=== PATIENT | female | born 1965 | race Caucasian/White ===

== ENCOUNTER 2017-05-02 10:47 | Day surgery (SDC) | payer OTHER, MEDICAID ==
--- NOTE | 2017-04-29 18:24 | GHP ---
[f rep st] PREOP HISTORY AND PHYSICAL DATE OF ADMISSION: 05/02/2017 The patient is a 51-year-old female with chronic renal failure, on dialysis, who comes to us with a thrombosed left upper extremity arteriovenous fistula. Ultrasound evaluation in the office confirms the thrombosed fistula and reveals a patent basilic vein appropriate for new fistula creation. She is here to plan for an attempted thrombectomy of her left upper extremity AV fistula. If this is u nsuccessful, which is the likely case, then we would create a new fistula likely using the basilic v ein, requiring a transposition. Risks and options of this were discussed including, but not limited to, bleeding, infection, nerve injury, steal syndrome, clotting, need for alternate access, damage to surrounding structures, and other problems, and she requests to proceed. PAST MEDICAL HISTORY: Chronic renal failure, anemia, and tuberous sclerosis. PAST SURGICAL HISTORY: Arteriovenous fistula creation. MEDICATIONS: Midodrine, Effexor, gabapentin, Sensipar, Nephro-Masha, Renvela, omeprazole, stool soft eners, trazodone, tramadol, iron, mupirocin ointment, and melatonin. ALLERGIES: Sulfa. FAMILY MEDICAL HISTORY: Mother with tubular sclerosis. SOCIAL HISTORY: The patient is a current every-day smoker with 35 pack years. REVIEW OF SYSTEMS: Heartburn and constipation. PHYSICAL EXAMINATION: GENERAL: A somewhat chronically ill-appearing 51-year-old female, alert and oriented x3 and in no acute distress. HEENT: Normocephalic, atraumatic. CHEST: Clear to ausculta tion bilaterally. CARDIAC: Regular rate and rhythm. ABDOMEN: Soft and nontender. EXTREMITIES: Left upper extremity with a palpable radial pulse, warm hand, and no thrill in the upper arm. IMPRESSION: This is a 51-year-old female with clotted arteriovenous fistula dialysis access of her left arm. PLAN: The plan is to attempt thrombectomy of her current left upper extremity fistula. The likelih ood that this will work is dismal. In that case, we would create a new fistula likely using her bas ilic vein, which would require transposition. Again, risks and options have been discussed, and she requests to proceed. /[id number]/MODL
[2017-05-02] MEDS ORDERED: THROMBIN (BOVINE) 5,000 UNIT VIAL TP ONE (10:53)
[2017-05-02] MEDS ORDERED: THROMBIN (BOVINE) 20,000 UNIT SPRAY TP ONE (10:53)
[2017-05-02] MEDS ORDERED: BUPIVACAINE 0.5% 30 ML SDV ONE (10:53)
[2017-05-02] MEDS ORDERED: PROTAMINE SULFATE 50 MG/5 ML VIAL IVP ONE (10:53)
[2017-05-02] MEDS ORDERED: PAPAVERINE HCL 60 MG/2 ML SDV ONE (10:54)
[2017-05-02] MEDS ORDERED: ceFAZolin 2 GM/DEXTROSE 100 ML IV ONE (11:20)
[2017-05-02] MEDS ORDERED: LIDOCAINE 1% 2 ML INJ ID PRN (11:22)
[2017-05-02] MEDS ORDERED: NS 1,000 ML IV ONE (11:22)
[2017-05-02 11:39] LABS: % IMMATURE GRANULYOCYTES 0.4 % (0.0-1.1); ABSOLUTE IMMATURE GRANULOCYTES 0.04 10^3/uL (0.00-0.10); ADD DIFF? NO; ADD MORPH? NO; ADD SCAN? NO; ATYPICAL LYMPHOCYTE FLAG 0 (0-99); FRAGMENT RBC FLAG 0 (0-99); HEMATOCRIT 31.6 % (38.0-47.0); HEMOGLOBIN 10.4 g/dL (12.6-16.3); LEFT SHIFT FLG 10 (0-99); LIPEMIA HEMOLYSIS FLAG 80 (0-99); MEAN CELL HEMOGLOBIN CONCENTR. 32.9 g/dL (32.4-36.7); MEAN CELL VOLUME 106.4 fL (81.5-99.8); MEAN PLATELET VOLUME 9.1 fL (8.7-11.7); PLATELET CLUMPS FLAG 20 (0-99); PLATELET COUNT 226 10^3/uL (150-400); RED BLOOD CELL COUNT 2.97 10^6/uL (4.18-5.33); RED CELL DISTRIBUTION WIDTH 14.3 % (11.5-15.2)
[2017-05-02 12:07] LABS: ANION GAP 14 mEq/L (8-16); CALCIUM 9.9 mg/dL (8.5-10.4); CARBON DIOXIDE 27 mEq/l (22-31); CHLORIDE 93 mEq/L (97-110); CREATININE 5.6 mg/dL (0.6-1.0); GLOMERULAR FILTRATION RATE 8; GLUCOSE 84 mg/dL (70-100); POTASSIUM 5.3 mEq/L (3.5-5.2); SODIUM 134 mEq/L (134-144)
--- NOTE | 2017-05-02 13:35 | PDHPUP ---
History & Physical Update H&P update statement: This history and physical update is based on an assessment of the patient which was completed after admission or registration (within 24 hours), but prior to the surgery/procedure. H&P update: H&P reviewed & patient examined, no change in patient's condition since H&P completed
--- NOTE | 2017-05-02 13:42 | PDANEPAE ---
ANE History of Present Illness AV fistula revision ANE Past Medical History - Cardiovascular History Hx Hypertension: No Hx Arrhythmias: No Hx Chest Pain: No Hx Coronary Artery / Peripheral Vascular Disease: No Hx CHF / Valvular Disease: No Hx Palpitations: No Cardiovascular History Comment: BP TENDS TO RUN LOW TAKING MIDODRINE - Pulmonary History Hx COPD: No Hx Asthma/Reactive Airway Disease: No Hx Recent Upper Respiratory Infection: Yes Hx Oxygen in Use at Home: Yes O2 in Use at Home (L/minute): NOC O2 2L Hx Sleep Apnea: Yes Sleep Apnea Screening Result - Last Documented: Positive Pulmonary History Comment: MILD SLEEP APNEA. HEREDITARY TATE IN LUNGS. SPONTANEOUS PNEUMOTHORAX IN PAST - MULTI BUT MANY YRS SINCE LAST ONE - Neurologic History Hx Cerebrovascular Accident: No Hx Seizures: No Hx Dementia: No Neurologic History Comment: CHILDHOOD SEIZURES - Endocrine History Hx Diabetes: No - Renal History Hx Renal Disorders: Yes Renal History Comment: CHRONIC RENAL FAILURE. DIALYSIS -. 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 TUBEROUS SCLEROSIS - Chronic Pain History Chronic Pain: Yes (GENERALIZED ACHING) - Surgical History Prior Surgeries: AV FISTULA. CHOLECYSTECTOMY. SKIN GROWTHS REMOVED. L INDEX FINGER. R BREAST ABSCESS ANE Review of Systems - Exercise capacity METS (RN): 4 METS - Systems Constitutional: Reports: no symptoms EENMT: Reports: no symptoms Cardiac: Reports: no symptoms Respiratory: Reports: no symptoms Gastrointestinal: Reports: no symptoms Skin: Reports: dryness Neurological: Reports: depressed ANE Patient History - Allergies Allergies/Adverse Reactions: Sulfa (Sulfonamide Antibiotics) Allergy (Verified 05/01/17 11:32) - Home Medications Home Medications: Effexor 05/01/17 [Last Taken 05/01/17 19:00] Gabapentin 05/01/17 [Last Taken 05/01/17 19:00] Herbals/Supplements -Info Only 05/01/17 [Last Taken 05/01/17 19:00] Iron 05/01/17 [Last Taken 05/01/17 19:00] Melatonin 05/01/17 [Last Taken Unknown] Midodrine HCl 05/01/17 [Last Taken 05/01/17 17:00] Mupirocin 05/01/17 [Last Taken Unknown] Omeprazole 05/01/17 [Last Taken 05/01/17 19:00] Renvela 05/01/17 [Last Taken 05/01/17 19:00] Sensipar 05/01/17 [Last Taken 05/01/17 19:00] Tramadol HCl 05/01/17 [Last Taken 05/01/17 19:00] Trazodone HCl 05/01/17 [Last Taken Unknown] - NPO status NPO Since - Liquids (Date): 05/01/17 NPO Since - Liquids (Time): 08:00 NPO Since - Solids (Date): 05/01/17 NPO Since - Solids (Time): 19:30 - Anes Hx Anes Hx: no prior problems - Smoking Hx Smoking Status: Current every day smoker Marijuana use: No - Alcohol Use Alcohol Use: None - Family Anes Hx Family Anes Hx: neg - N/A Family Hx Anesthesia Complications: NEG ANE Labs/Vital Signs - Labs Result Diagrams: 05/02/17 11:25 05/02/17 11:25 - Vital Signs Blood Pressure: 115/75 Heart Rate: 83 Respiratory Rate: 16 Height: 167.64 cm Weight: 81.7 kg ANE Physical Exam - Airway Neck exam: FROM Mallampati Score: Class 1 Mouth exam: dentures - Pulmonary Pulmonary: no respiratory distress - Cardiovascular Cardiovascular: regular rate and rhythym, no murmur, rub, or gallop - ASA Status ASA Status: III ANE Anesthesia Plan Anesthesia Plan: general endotracheal anesthesia
[2017-05-02] MEDS ORDERED: MIDAZOLAM 2 MG/2 ML VIAL IVP ONE (13:45)
[2017-05-02] MEDS ORDERED: PROPOFOL/EMULSION 500 MG/50 ML BOTTLE IV ONE (14:03)
[2017-05-02] MEDS ORDERED: fentaNYL 100 MCG/2 ML INJ ONE ×2 (14:03→15:01)
[2017-05-02] MEDS ORDERED: GLYCOPYRROLATE 0.2 MG/1 ML VIAL ONE (14:38)
[2017-05-02] MEDS ORDERED: DEXAMETHASONE 4 MG/ML VIAL ONE (14:38)
[2017-05-02] MEDS ORDERED: ONDANSETRON 4 MG/2 ML VIAL ONE (14:38)
[2017-05-02] MEDS ORDERED: HEPARIN 10,000 UNIT/10 ML MDV ONE (14:39)
[2017-05-02] MEDS ORDERED: LIDOCAINE 2% 5 ML SDV ONE (14:39)
[2017-05-02] MEDS ORDERED: PROPOFOL 200 MG/20 ML VIAL ONE (15:01)
[2017-05-02] MEDS ORDERED: HYDROCODONE/APAP 5/325 TAB PO PRN (15:48)
[2017-05-02] MEDS ORDERED: OXYCODONE/APAP 5/325 TAB PO PRN ×2 (15:48→17:20)
[2017-05-02] MEDS ORDERED: NALOXONE HCL 0.4 MG/ML INJ IVP PRN (15:48)
[2017-05-02] MEDS ORDERED: ONDANSETRON 4 MG/2 ML VIAL IVP PRN (15:48)
[2017-05-02] MEDS ORDERED: HYDROmorphONE/DILAUDID 1 MG/ML SYR IVP PRN (15:48)
[2017-05-02] MEDS ORDERED: fentaNYL 100 MCG/2 ML INJ IVP PRN (15:48)
[2017-05-02 16:21] VITALS: TEMP 98.1
[2017-05-02] MEDS ORDERED: OXYCODONE/APAP 5/325 TAB ONE (17:02)
[2017-05-02 17:11] VITALS: BP 94/47; PULSE 74; RESP 14; O2SAT 94
[2017-05-02] MEDS ORDERED: ONDANSETRON DISINTEGRATING 4 MG TAB PO PRN (17:20)
--- NOTE | 2017-05-02 17:20 | POSTOPPROG ---
Post Op Note Date of Operation: 05/02/17 Surgeon: Santi Nicole Anesthesiologist: NELLI Anesthesia: GET(General Endotracheal) Pre-op Diagnosis: CHRONIC RENAL FAILURE Post-op Diagnosis: SAME Indication: CLOTTED FISTULA Procedure: ULTRASOUND VEIN MAPPING/LEFT BRACHIAL BASILIC TRANSPOSITION AV FISTULA Findings: COMPLETELY OCCLUDED OLD BRACHIAL CEPHALIC AV 5 FISTULA FROM ANTECUBITAL SPA Inf/Abcess present in the surg proc area at time of surgery?: No Depth: Deep Incisional (Fascial) EBL: Minimal Complications: NONE Drains: Everett Cha Specimen(s): NONE
--- NOTE | 2017-05-02 17:34 | POSTANESTH ---
Post Anesthetic Evaluation Cardiovascular Status: Normal, Stable Respiratory Status: Similar to Pre-op Cond. Level of Consciousness/Mental Status: Can Participate in Eval Pain Control: Adequate, Prn Tx Ordered Nausea/Vomiting Control: Adequate, Prn Tx Ordered Complications Possibly Related to Anesthesia: None Noted (Pt. uses home O2. Plan same)
== END 2017-05-02 18:20 | disposition home or self-care (01) ==
LOC: FSGY 10:47
PROVIDERS: ATTEND Surgery
PROC: B54NZZZ Ultrasonography of Left Upper Extremity Veins (ICD-10-PCS; principal; 2017-05-02 12:15)
PROC: 03180ZD Bypass Left Brachial Artery to Upper Arm Vein, Open Approach (ICD-10-PCS; principal; 2017-05-02 12:15)
DX: T82.868A Thrombosis due to vascular prosthetic devices, implants and grafts, initial encounter (principal); N18.6 End stage renal disease; D64.9 Anemia, unspecified; Q85.1 Tuberous sclerosis; F17.210 Nicotine dependence, cigarettes, uncomplicated; Z99.2 Dependence on renal dialysis; F41.8 Other specified anxiety disorders
CPT/HCPCS: J0690; J1100; J1644; J2250; J2405; J2440; J2704; J2720; J3010